=== PATIENT | female | born 1945 | race Caucasian/White ===

== ENCOUNTER 2018-10-19 21:31 | Emergency (ER) | payer SELFPAY ==
[~2018-10-19] VITALS: Ht 165.1 cm; Wt 63.5 kg
[2018-10-19 21:50] VITALS: BP_SYST 158
[2018-10-19] MEDS ORDERED: LOSA50TA28 PO (22:07)
[2018-10-19] MEDS ORDERED: AMLO5TAB4 PO (22:08)
[2018-10-20 01:42] LABS: BASOPHILS % (AUTO) 0.3 % (0.0-2.0); EOSINOPHILS # (AUTO) 0.1 K/uL (0.0-0.4); EOSINOPHILS % (AUTO) 1.1 % (0.0-4.0); HEMATOCRIT 32.3 % (36-48); HEMOGLOBIN 11.3 g/dL (12.0-16.0); LYMPHOCYTES # (AUTO) 1.4 K/uL (1.0-5.5); LYMPHOCYTES % (AUTO) 18.2 % (20.5-51.5); MEAN CORPUSCULAR HEMOGLOBIN 30 pg (27-31); MEAN CORPUSCULAR HGB CONC 35 % (32-36); MEAN CORPUSCULAR VOLUME 87 fL (79.0-98.0); MONOCYTES # (AUTO) 0.9 K/uL (0.0-1.0); MONOCYTES % (AUTO) 11.7 % (1.7-9.3); NEUTROPHILS # (AUTO) 5.3 K/uL (1.8-7.7); NEUTROPHILS % (AUTO) 68.7 % (40.0-70.0); PLATELET COUNT (AUTO) 246 K/uL (130-430); RED BLOOD CELL COUNT(AUTO) 3.72 MIL/uL (4.2-6.2); RED CELL DISTRIBUTION WIDTH 14.7 % (9.0-15.0); WHITE BLOOD COUNT (AUTO) 7.7 K/uL (4.8-10.8)
[2018-10-20] MEDS ORDERED: KETOROLAC TROMETHAMINE 30 MG VIAL ONE (01:45)
[2018-10-20] MEDS ORDERED: KETOROLAC TROMETHAMINE 30 MG VIAL IM ONE (01:45)
[2018-10-20 01:56] LABS: ANION GAP 4 (5-15); CALCIUM 8.9 mg/dL (8.4-11.0); CHLORIDE 91 mmol/L (98-107); CREATININE 0.86 mg/dL (0.55-1.30); GLUCOSE 113 mg/dL (70-99); POTASSIUM 4.2 mmol/L (3.5-5.1); SODIUM SERUM 125 mmol/L (136-145); UREA NITROGEN, BLOOD 16 mg/dL (8-21)
[2018-10-20 02:00] LABS: ALANINE AMINOTRANSFERASE 21 U/L (12-78); ALBUMIN 3.4 g/dL (3.4-4.8); ASPARTATE AMINOTRANSFERASE 23 U/L (10-37); TOTAL BILIRUBIN 0.4 mg/dL (0.0-1.0)
[2018-10-20] MEDS ORDERED: NACL 0.9% 1,000 ML IV ONE (02:15)
[2018-10-20 03:35] LABS: ANION GAP 7 (5-15); CALCIUM 8.6 mg/dL (8.4-11.0); CHLORIDE 94 mmol/L (98-107); CREATININE 0.79 mg/dL (0.55-1.30); GLUCOSE 107 mg/dL (70-99); POTASSIUM 4.4 mmol/L (3.5-5.1); SODIUM SERUM 128 mmol/L (136-145); UREA NITROGEN, BLOOD 15 mg/dL (8-21)
[2018-10-20] MEDS ORDERED: SODIUM CHLORIDE 500 MG TABLET PO ONE (05:00)
[2018-10-20] MEDS ORDERED: cloNIDine HCL 0.1 MG TABLET PO ONE (06:00)
[2018-10-20] MEDS ORDERED: hydrALAZINE HCL 20 MG/ML VIAL IVP ONE (07:00)
[2018-10-20 07:07] LABS: ANION GAP 3 (5-15); CALCIUM 8.5 mg/dL (8.4-11.0); CHLORIDE 98 mmol/L (98-107); CREATININE 0.88 mg/dL (0.55-1.30); GLUCOSE 110 mg/dL (70-99); POTASSIUM 4.1 mmol/L (3.5-5.1); SODIUM SERUM 130 mmol/L (136-145); UREA NITROGEN, BLOOD 14 mg/dL (8-21)
[2018-10-20 07:42] VITALS: BP_SYST 118
== END 2018-10-20 07:43 | disposition home or self-care (01) ==
LOC: SED 21:31
DX: E87.1 Hypo-osmolality and hyponatremia (principal); I10 Essential (primary) hypertension; Z88.2 Allergy status to sulfonamides
CPT/HCPCS: 36415; 80048; 80053; 85025; 96374; 99283; J1885; J7030